=== PATIENT | male | born 1975 | race American Indian/Alaskan Native ===

== ENCOUNTER 2020-01-15 21:08 | Emergency (ER) | payer MEDICAID ==
[2020-01-15] MEDS ORDERED: Iopamidol 612 MG/ML 100 ML Bottle IVPUSH ONE (21:17)
[2020-01-15 21:42] LABS: ANION GAP 17.2 mEq/L (7-13); CHLORIDE,CL 100 mmol/L (98-107); SODIUM,NA 137 mmol/L (136-145)
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
[2020-01-15] MEDS ORDERED: Bacitracin Oint 1 GM U/D Packet TOP ONE (22:49)
[2020-01-15] MEDS ORDERED: Lidocaine 1% with EPINEPHrine 1:100,000 20 ML MDV INJECT ONE (22:49)
--- NOTE | 2020-01-15 23:52 | CR ---
PROCEDURE INFORMATION: Exam: XR Right Knee Exam date and time: 01/15/2020 11:43 PM Age: 44 years old Clinical indication: Other: Pain; Additional info: Right knee laceration TECHNIQUE: Imaging protocol: XR Right knee. Views: 3 views. COMPARISON: No relevant prior studies available. FINDINGS: Bones/joints: Normal. Soft tissues: Normal. IMPRESSION: 1. No acute findings. 2. No fracture. 3. No dislocation. 4. No joint effusion.
[2020-01-16] MEDS ORDERED: Diphtheria,Pertussis(Acell),Tetanus Vaccine 0.5 ML SDV IM ONE (00:35)
== END 2020-01-16 00:57 | disposition home or self-care (01) ==
LOC: EDBD → DL.ED 21:08
DX: S06.0X0A Concussion without loss of consciousness, initial encounter (principal); S81.011A Laceration without foreign body, right knee, initial encounter; S71.111A Laceration without foreign body, right thigh, initial encounter; V92.09XA Drowning and submersion due to fall off unspecified watercraft, initial encounter
CPT/HCPCS: 12002; 36415; 70450; 71260; 72125; 72128; 72131; 73562; 74177; 80053; 80305; 80307; 81001; 85025; 99284; Q9967